=== PATIENT | male | born 1975 | race Caucasian/White ===

== ENCOUNTER 2017-01-02 21:23 | Emergency (ER) | payer SELFPAY ==
[~2017-01-02] VITALS: Ht 185.4 cm; Wt 105.0 kg
[~2017-01-02 21:23] MED LIST: DICL-86 PO; METH500T3 PO; OXYC30TA3 PO
[2017-01-02 21:25] VITALS: BP 140/91; PULSE 100; RESP 16; TEMP 98.5; O2SAT 100
== END 2017-01-02 23:53 | disposition left against medical advice (07) ==
LOC: NED 21:23
DX: M79.602 Pain in left arm (principal)
CPT/HCPCS: 99281

== ENCOUNTER 2017-01-03 05:14 | Emergency (ER) | payer SELFPAY ==
[~2017-01-03] VITALS: Ht 172.7 cm; Wt 78.0 kg
[2017-01-03 05:22] VITALS: BP 156/96; PULSE 91; RESP 15; O2SAT 100
--- NOTE | 2017-01-03 05:59 | PD ---
HPI Chief Complaint: Pain: Acute or Chronic Time Seen by Provider: 05:40 Travel History International Travel<30 days: No Contact w/Intl Traveler<30days: No Traveled to known affect area: No History of Present Illness HPI 41-year-old male presents to emergency department for evaluation of left wrist pain 1 month. Patient states he fell one month ago and believes he broke it. He did not seek evaluation. Believes the bone is sticking out. Denies any alterations in sensation or limitations in range of motion. Flexion and extension of the wrist does exacerbate pain. Currently it as a 6 out of 10, constant, dull ache. Denies any other symptoms at this time. PFSH Past Medical History Medical History: Denies Significant Hx Musculoskeletal: Yes (CHRONIC BACK PAIN.) Immunizations Current: Yes Tetanus Vaccination: Unknown Influenza Vaccination: No Social History Alcohol Use: No Tobacco Use: Yes (1PPD) Substance Use: No Allergies-Medications (Allergen,Severity, Reaction): Coded Allergies: No Known Allergies (Verified , 01/03/17) Reported Meds & Prescriptions Reported Meds & Active Scripts Active Review of Systems Except as stated in HPI: all other systems reviewed are Neg Physical Exam Narrative GENERAL: Well-nourished, well-developed patient in no acute distress SKIN: Focused skin assessment warm/dry. HEAD: Normocephalic. EYES: No scleral icterus. No injection or drainage. NECK: Supple, trachea midline. No JVD or lymphadenopathy. CARDIOVASCULAR: Regular rate and rhythm without murmurs, gallops, or rubs. RESPIRATORY: Breath sounds equal bilaterally. No accessory muscle use. EXTREMITY: There is minimal swelling and tenderness of the left distal forearm and wrist. There is no obvious deformity. The skin is intact. Flexion and extension of the fingers is normal. The fingers are warm and well perfused. Sensation to light touch is intact in the hand. BACK: Nontender without obvious deformity. No CVA tenderness. Data Data Last Documented VS Vital Signs Date Time Temp Pulse Resp B/P (MAP) Pulse Ox O2 Delivery O2 Flow Rate FiO2 01/03/17 05:22 91 15 156/96 (116) 100 Room Air Orders Orders Wrist, Complete ([id number]) (01/03/17 ) Splint Or Brace Apply/Monitor (01/03/17 06:39) [facility] Medical Decision Making Medical Screen Exam Complete: Yes Emergency Medical Condition: Yes Medical Record Reviewed: Yes Differential Diagnosis Fracture acute versus subacute versus contusion versus dislocation Narrative Course 41-year-old male presents to emergency department for evaluation left wrist pain 1 month following an injury he sustained one month ago. Patient appears without distress. The extremity is neurovascularly intact. X-ray imaging has been completed of the left wrist but is not yet read by radiology. It is suspicious for a nondisplaced radius fracture. At this point and has been one month. 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 He agrees to return immediately with any acute worsening of symptoms. Diagnosis Primary Impression: Left wrist injury Qualified Codes: S69.92XA - Unspecified injury of left wrist, hand and finger( s), initial encounter Referrals: Orthopaedic Surgeon Primary Care Physician Patient Instructions: General Instructions, Wrist Fracture in Adults (DC) Additional Instructions: Wear brace for support Elevate to reduce pain and swelling Ibuprofen as directed on the package as needed for pain Follow-up with orthopedically impaired teacher Return immediately to the emergency department with any acute worsening symptoms Med/Other Pt SpecificInfo: No Change to Meds Disposition: 01 DISCHARGE HOME Condition: Stable Jodie Joseph Jan 03, 2017 05:59
--- NOTE | 2017-01-03 06:46 | RADRPT ---
EXAM DATE/TIME: 01/03/2017 05:57 [facility] COMPARISON: No previous studies available for comparison. INDICATIONS : Left wrist pain post fall. MEDICAL HISTORY : None. SURGICAL HISTORY : None. ENCOUNTER: Initial ACUITY: 1 day PAIN SCORE: 8/10 LOCATION: Left wrist FINDINGS: Three view examination of the left wrist demonstrates no soft tissue swelling, dislocation, or fractu re. The carpal bones are in normal alignment. The joint spaces are maintained. Bony mineralization is normal. CONCLUSION: Unremarkable examination of the left wrist. Edward Acevedo Jr., MD on January 03, 2017 at 6:44 Board Certified Radiologist. This report was verified electronically.
== END 2017-01-03 06:47 | disposition home or self-care (01) ==
LOC: NEPD 05:14
DX: S69.92XA Unspecified injury of left wrist, hand and finger(s), initial encounter (principal); W19.XXXA Unspecified fall, initial encounter
CPT/HCPCS: 73110; 99283; L3908